=== PATIENT | female | born 1975 | race Caucasian/White ===

== ENCOUNTER 2020-10-21 16:08 | Outpatient (CLI) | payer OTHER, SELFPAY ==
--- NOTE | ~2020-10-21 | MM_ITS ---
EXAMINATION: MM screening [facility] HISTORY: Screening TECHNIQUE: Craniocaudal and mediolateral oblique 3-D tomosynthesis images were obtained and synthetic 2-D images were generated. CAD analysis was submitted and interpreted. COMPARISON: No prior mammogram is available for comparison at this institution. BREAST PARENCHYMAL COMPOSITION: There are scattered areas of fibroglandular density. FINDINGS: There is no evidence of suspicious mass, calcification, or architectural distortion to sugg est malignancy in either breast. There has been no suspicious interval change. IMPRESSION: 1. No mammographic evidence of malignancy. 2. Recommend routine screening mammography in one year. BI-RADS Category 1: Negative Reviewed, dictated and finalized at location A.
== END 2020-10-21 16:09 | disposition home or self-care (01) ==
LOC: ANHIMG 16:11
PROVIDERS: PCP Family Medicine Sports Medicine; Visit Provider Obstetrics & Gynecology
DX: Z12.31 Encounter for screening mammogram for malignant neoplasm of breast (principal)
CPT/HCPCS: 77063; 77067

== ENCOUNTER 2020-12-24 02:15 | Day surgery (SDC) | payer OTHER, SELFPAY ==
[2020-12-16 15:33] VITALS: BMI 35.7
[2020-12-24 11:32] VITALS: BP 158/89; PULSE 93; RESP 18; TEMP 36.9; O2SAT 100
[2020-12-24] MEDS: ACETAMINOPHEN 500 MG TABLET 1000 MG PO (11:39)
--- NOTE | 2020-12-24 12:08 | PM.IMHP ---
H&P: HPI History of Present Illness Date/Time: 12/24/20 12:08 45 y/o whose has had a vasectomy. She has heavy menses every 3-4 weeks. Her thyroid was checked and is ok. Ultrasound suggests a 1.2 cm soft tissue structure in the endometrial complex. She desires surgical management of her problem. Chief Complaint: Heavy periods Review of Systems Review of Systems: All systems reviewed & are unremarkable except as noted in HPI and below PMFSH Past Medical History Medical History Anxiety Chronic hypertension History of gestational diabetes History of pre-eclampsia Surgical History Surgical History History of delivery Social History Social History Smoking packs per day: 0.5 Smoking cigarettes per day: 10.0 Years smoked: 3 Smoking pack-years: 1.50 Smoking status: Former smoker Tobacco type: cigarettes Smoking end date: 03/21/05 Alcohol intake: never Substance use: current Substance use type: marijuana Other substance usage details: EDIBLES Last use: 12/15/20 Living arrangements: with family Spiritual care concerns: No Meds Home Medications and Allergies Home Medications Medication Instructions Recorded Confirmed Type aspirin [Baby Aspirin] 81 mg PO DAILY 12/16/20 12/24/20 History clonazepam 0.5 mg PO HS 12/16/20 12/24/20 History duloxetine [Cymbalta] 20 mg PO BID 12/16/20 12/24/20 History lactobacillus comb no.10 20,000 mmu cells PO DAILY 12/16/20 12/24/20 History [Probiotic] lisinopril 40 mg PO DAILY 12/16/20 12/24/20 History multivitamin 1 tablet PO DAILY 12/16/20 12/24/20 History omeprazole 20 mg PO DAILY 12/16/20 12/24/20 History Allergies Allergy/AdvReac Type Severity Reaction Status Date / Time azithromycin Allergy Severe SEVERE Verified 12/24/20 11:49 SWELLING Vital Signs Vital Signs - 24 hr 12/24/20 11:32 Temperature 36.9 C Pulse Rate 93 Respiratory Rate 18 Blood Pressure 158/89 H Pulse Oximetry 100 Exam Const: Orientation/consciousness: patient oriented x3 Other: Well-developed, well-nourished female in no acute distress. Neck: Thyroid: thyroid normal Lymphatic: no lymphadenopathy noted (in neck, axilla or inguinal nodes) Resp: Effort & Inspection: normal respiratory effort Auscultation: clear to auscultation bilaterally Cardio: Rate: regular rate Rhythm: regular rhythm Heart sounds: S1 normal heart sound present and S2 normal heart sound present GI: Other: ABD: Soft, nontender, nondistended. No guarding or rebound tenderness. No hepatosplenomegaly. : General: Yes no CVA tenderness Other: External genitalia: normal female hair distribution, without lesion. Urethral meatus: no lesion, non prolapsed. Bladder: no mass, nontender Vagina: well-estrogenized, without lesion or discharge. No cystocele or rectocele. Cervix: no lesion or discharge. Uterus: small, anteverted, freely mobile, nontender Adnexa: no mass or tenderness. Anus/perineum: no lesions, nontender Back/Spine/Pelvis: Back: no CVA tenderness Skin: General skin exam: normal color and no rashes or lesions noted Neuro: General: patient oriented x3 Extrem: Other: Extremities: nontender with no edema Psych: Mental Status: mental status grossly normal Affect: normal affect Assessment and Plan Assessment and plan (1) Menometrorrhagia: Code(s): N92.1 - Excessive and frequent menstruation with irregular cycle Status: Acute Assessment and Plan: A: Menometrorrhagia with possible endometrial polyp. P: I reviewed medical as well as surgical management options. She prefers the latter. Specifically, I have offered her a hysteroscopy, dilation and sharp curettage, endometrial polypectomy and endometrial ablation. She understands risks of surgery to include risks o
--- NOTE | 2020-12-24 12:14 | WPDHPUPDATE1 ---
History and Physical Update Update Date/Time: 12/24/20 12:14 History and Physical has been reviewed, including an updated exam of the patient. There are NO changes in the patient's condition. Risks, benefits, and alternatives have been discussed and questions answered. Patient agrees to proceed with procedure.
[2020-12-24] MEDS: LACTATED RINGERS 1,000 ML 30 ML IV CONT (12:30)
--- NOTE | 2020-12-24 12:57 | WPDANESEPPF ---
Anes - Initial Pre Proc Eval Procedure: Operation Date: 12/24/20 13:00 Proposed Procedures p Hysteroscopy, Dilation and Curettage, Polypectomy With Ayaka Endometrial Ablation - Paolo Draper MD Date/Time: 12/24/20 12:57 Surgeon: Paolo Draper MD Pre Op Diagnosis: Heavy Bleeding, Uterine Polyp Patient Data Age: 45 Gender: F Height: 1.65 m Weight: 104.7 kg Last Vital Signs Temp 36.9 C 12/24/20 11:32 Pulse 93 12/24/20 11:32 Resp 18 12/24/20 11:32 BP 158/89 H 12/24/20 11:32 Pulse Ox 100 12/24/20 11:32 Allergies Allergy/AdvReac Type Severity Reaction Status Date / Time azithromycin Allergy Severe SEVERE Verified 12/24/20 11:49 SWELLING Home Medications Medication Instructions Recorded Confirmed Type aspirin [Baby Aspirin] 81 mg PO DAILY 12/16/20 12/24/20 History clonazepam 0.5 mg PO HS 12/16/20 12/24/20 History duloxetine [Cymbalta] 20 mg PO BID 12/16/20 12/24/20 History lactobacillus comb no.10 20,000 mmu cells PO DAILY 12/16/20 12/24/20 History [Probiotic] lisinopril 40 mg PO DAILY 12/16/20 12/24/20 History multivitamin 1 tablet PO DAILY 12/16/20 12/24/20 History omeprazole 20 mg PO DAILY 12/16/20 12/24/20 History hydrocodone-acetaminophen 1 - 2 tablet PO Q6H PRN #30 tablet 12/24/20 Rx Patient hx anesthesia problems: none Family hx anesthesia problems: none Results Review: All pre-operative results and documents have been reviewed as part of the pre-operative evaluation. [facility] Past Medical History Medical History (Updated 12/24/20 @ 12:57 by Jerome Olmos DO) Anxiety Chronic hypertension GERD (gastroesophageal reflux disease) History of gestational diabetes History of pre-eclampsia Pre-diabetes Surgical History Surgical History History of delivery Social History Social History Smoking packs per day: 0.5 Smoking cigarettes per day: 10.0 Years smoked: 3 Smoking pack-years: 1.50 Smoking status: Former smoker Tobacco type: cigarettes Smoking end date: 03/21/05 Alcohol intake: never Substance use: current Substance use type: marijuana Other substance usage details: EDIBLES Last use: 12/15/20 Living arrangements: with family Spiritual care concerns: No Anes - Eval Final PreProcedure Day of Procedure 12/24/20 12:57 Patient weight: obese Heart: regular rate and rhythm Lungs: clear to auscultation and normal air movement Airway: Mallampati scale class II Neurological: alert and oriented Last oral intake: >/= 8 hours ASA classification: III Emergent: no Anesthetic plan: proceed Anesthesia type and monitoring: general GIVS and standard monitoring Results Review: All pre-operative results and documents have been reviewed as part of the pre-operative evaluation. Informed Consent: The patient's anesthetic plan and its attendant risks and benefits were discussed with the patient/family/POA. Questions were solicited and answers provided to the satisfaction of the patient/family/POA.
[2020-12-24] MEDS: LIDOCAINE HCL 1% PF 30 ML VIAL 10 ML INFILTRATE (13:22)
[2020-12-24] MEDS: KETOROLAC 30 MG/ML VIAL (*BKC) IV PUSH (13:22)
--- NOTE | 2020-12-24 13:42 | W.PM.PROC2 ---
Procedure Note - Detailed Date of Procedure 12/24/20 Pre-op Diagnosis Menometrorrhagia Endometrial polyp Post-op Diagnosis same Procedure Performed Hysteroscopy Dilation and sharp curettage Endometrial polypectomy Endometrial ablation Surgeon Paolo Draper MD Anesthesia MAC and local (1% lidocaine) Findings Small fundal endometrial polyp. Otherwise, unremarkable endometrium. Both tubal ostia seen. Uterus sounded to a depth of 7.5 cm with a cervical length of 4.5 cm. Description of Procedure The patient was taken to the operating room where she was prepared and draped in the usual sterile fashion in the dorsal lithotomy position. A sterile speculum was placed into the vagina. The anterior lip of the cervix was grasped with single-tooth tenaculum. Ten mL of 1% lidocaine was administered in a paracervical block. The cervix was then gently dilated using Hegar dilators until an 8 mm dilator could be passed. Hysteroscopy was performed using sterile saline as a distention medium. Findings are as noted above. A polyp forceps was used to grasp and easily remove the small fundal polyp. Sharp curettage was then performed, and endometrial curettings were collected on a Telfa pad and passed off to be sent to pathology. Finally, the the Ayaka device was advanced and endometrial ablation commenced without difficulty. The device was withdrawn and a second look was taken using the hysteroscope. Excellent coverage of the endometrial cavity was noted. The tenaculum was removed. Hemostasis was excellent. Sponge, lap, needle and instrument counts were correct. The patient was awakened and taken to the recovery room in stable condition. I was present and scrubbed through the entire procedure. Implants None Estimated Blood Loss 5 Drains No Packing No Pathology yes (Endometrial curettings) Complications None Condition stable Disposition PACU
[2020-12-24 13:45] VITALS: BP 134/67; PULSE 79; RESP 16; O2SAT 94
[2020-12-24] MEDS: fentaNYL CITRATE INJ (*CRX) 100 MCG/2 ML VIAL 25 MCG IV PUSH ×2 (14:09→14:12)
[2020-12-24 14:15] VITALS: BP 150/85; PULSE 68; RESP 16
== END 2020-12-24 15:05 | disposition home or self-care (01) ==
PROVIDERS: Visit Provider Obstetrics & Gynecology
PROC: 0U5B8ZZ Destruction of Endometrium, Via Natural or Artificial Opening Endoscopic (ICD-10-PCS; CPT 58563; principal; 2020-12-24 13:00)
DX: N92.1 Excessive and frequent menstruation with irregular cycle (principal); N84.0 Polyp of corpus uteri; R73.03 Prediabetes; I10 Essential (primary) hypertension; K21.9 Gastro-esophageal reflux disease without esophagitis; Z79.82 Long term (current) use of aspirin; Z87.891 Personal history of nicotine dependence; F12.90 Cannabis use, unspecified, uncomplicated; E66.9 Obesity, unspecified; Z68.38 Body mass index [BMI] 38.0-38.9, adult
CPT/HCPCS: 58563; 88305; A9270; J1885; J2250; J2704; J3010; J7030; J7120

== ENCOUNTER 2022-11-20 19:10 | Emergency (ER) | payer OTHER, SELFPAY ==
[2022-11-20 19:46] VITALS: PULSE 88; RESP 18; TEMP 36.4; O2SAT 99
--- NOTE | 2022-11-20 19:58 | PC.NURSE ---
Patient declined to have her blood pressure taken at her visit today at the clinic. Patient reports that having her blood pressure taken gives her panic attacks.
--- NOTE | 2022-11-20 20:20 | ED.URI ---
HPI - URI/Sore Throat General Chief Complaint: Upper Respiratory Infection Stated Complaint: sorethroat Time Seen by Provider: 11/20/22 19:54 Source: patient and RN notes reviewed Mode of arrival: ambulatory Limitations: no limitations History of Present Illness HPI Narrative: Patient presents today complaining of 3 day history of sore throat and fever up to 100. Denies any additional symptoms to include congestion, rhinorrhea, cough, nausea vomiting. She currently rates her pain 10/10, which increases with swallowing. She has been taking ibuprofen with mild relief. Two children with similar symptoms. Related Data Home Medications Medication Instructions Recorded Confirmed duloxetine 20 mg capsule,delayed 20 mg PO BID 12/16/20 11/20/22 release (Cymbalta) lisinopril 40 mg tablet 40 mg PO DAILY 12/16/20 11/20/22 lisdexamfetamine 20 mg capsule 20 mg PO DAILY 11/20/22 11/20/22 (Vyvanse) Allergies Allergy/AdvReac Type Severity Reaction Status Date / Time azithromycin Allergy Severe SEVERE Verified 11/20/22 19:59 SWELLING Review of Systems Review of Systems: CONSTITUTIONAL: Denies body aches,chills, or sweats.+ fever EYES: Denies visual changes, redness, or discharge. ENT: Denies rhinorrhea, congestion, or otalgia.+ sore throat CARDIOVASCULAR: Denies chest pain, palpitations, or edema. RESPIRATORY: Denies cough or dyspnea. GASTROINTESTINAL: Denies abdominal pain, nausea, vomiting, or diarrhea. GENITOURINARY: Denies dysuria or hematuria. SKIN: Denies rash, itching, or wounds. MUSCULOSKELETAL: Denies back pain, joint pain, or myalgia. NEUROLOGIC: Denies headache, numbness, tingling, or weakness. PSYCH: Denies depression or anxiety. [facility] Past Medical History Medical History Anxiety Chronic hypertension GERD (gastroesophageal reflux disease) History of gestational diabetes History of pre-eclampsia Pre-diabetes Surgical History Surgical History History of delivery Social History Social History Smoking packs per day: 0.5 Smoking cigarettes per day: 10.0 Years smoked: 3 Smoking pack-years: 1.50 Smoking status: Former smoker Tobacco type: cigarettes Smoking end date: 03/21/05 Alcohol intake: never Substance use: current Substance use type: marijuana Other substance usage details: EDIBLES Last use: 12/15/20 Living arrangements: with family Spiritual care concerns: No Comments At time of signature, I have reviewed and agree with nursing past medical, surgical, social and family history unless otherwise noted. Please see nursing chart for further information. There is no relevant family history pertinent to the presenting complaint Exam Narrative: GENERAL: Well-appearing, well-nourished, and in no acute distress. HEAD: Normocephalic, atraumatic. EYES: EOMI. No redness or drainage. Conjunctivae normal. ENT: Mucous membranes pink and moist. Nares clear. No rhinorrhea. TMs normal bilaterally. Throat mildly erythematous with white exudate. Tonsils 3+. Uvula midline. NECK: Normal AROM. Supple. No lymphadenopathy. CHEST: No respiratory distress. Clear to auscultation. HEART: Regular rate and rhythm. No murmur appreciated. Normal peripheral pulses. EXTREMITIES: Normal range of motion. No edema. SKIN: Warm, dry, no rash. Capillary refill normal. Normal skin turgor. NEURO: No focal deficits. Alert and oriented x3. Gait steady. PSYCH: Normal affect. No signs of depression or anxiety. Course Course Level of Care: Express Care Visit Vital Signs Vital signs: Vital Signs Temperature 97.6 F 11/20/22 19:46 Pulse Rate 88 11/20/22 19:46 Respiratory Rate 18 11/20/22 19:46 Pulse Oximetry 99 11/20/22 19:46 Oxygen Delivery Room Air 11/20/22 19:46 Tem
== END 2022-11-20 20:22 | disposition home or self-care (01) ==
PROVIDERS: Emergency Provider Nurse Practitioner; PCP Hospitalist
DX: J02.0 Streptococcal pharyngitis (principal); Z87.891 Personal history of nicotine dependence; I10 Essential (primary) hypertension; K21.9 Gastro-esophageal reflux disease without esophagitis; R73.03 Prediabetes
CPT/HCPCS: 87880; 99213; G0463